=== PATIENT | female | born 1935 | race Caucasian/White ===

== ENCOUNTER → 2020-12-29 | Outpatient (CLI) | payer MEDICARE, BC ==
[~2020-12-29] MED LIST: ALPRAZOLAM0.5 MG PO; AMITIZA 24 MCG24 MCG PO; ASPIR 8181 MG PO; ASPIRIN81 MG PO; AUGMENTIN 500-1 EACH PO; B-122500 MCG PO; BENICAR20 MG PO; CARDURA 2MG TAB2 MG PO; CATAPRES0.1 MG PO; COLACE 100MG C100 MG PO; COZAAR100 MG PO; DILTIAZEM HCL90 MG PO; EFFIENT5 MG PO; ELIQUIS5 MG PO; FLAGYL500 MG PO; GLUCOPHAGE 500500 MG PO; IMDUR ER TAB 6060 MG PO; ISOSORBIDE MONO30 MG PO; K-DUR TAB 10 M10 MEQ PO; LACTULOSE20 GM/30 M PO; LIPITOR TAB 2020 MG PO; LIPITOR20 MG PO; LOSARTAN-HCTZ1 EAC1 PO; MEGACE TAB 40 M40 MG PO; METOPROLOL TART25 MG PO; NORCO 5-325 TA1 EACH PO; NORVASC 5 MG TAB5 MG PO; PROTONIX40 MG PO; REMERON15 MG PO; ROCEPHIN 1 GM AD1 GM IV; TOPROL XL25 MG PO; TYLENOL 325MG325 MG PO; VITAMIN B12-FO1 EACH PO
== END ==
LOC: US 10:42
DX: E04.1 Nontoxic single thyroid nodule (principal); E04.2 Nontoxic multinodular goiter
CPT/HCPCS: 76536

== ENCOUNTER 2022-04-11 08:40 | Emergency (ER) | payer MEDICARE, BC ==
[2022-04-11 09:47] LABS: HEMOGLOBIN 14.6 gm/dl (12.3-15.3); RED BLOOD COUNT 4.64 M/UL (4.00-5.10); WHITE BLOOD COUNT 10.1 K/UL (4.5-11.0)
[2022-04-11 10:23] LABS: BUN/CREATININE RATIO 16 (0-10)
[2022-04-11] MEDS ORDERED: MECLIZINE HCL25 MG PO (13:04)
[2022-04-11] MEDS ORDERED: ONDANSETRON ODT4 MG SL (13:04)
[2022-04-11] MEDS ORDERED: CEFUROXIME500 MG PO (13:04)
== END 2022-04-11 10:37 | disposition home or self-care (01) ==
LOC: ER1 08:40
PROVIDERS: Physician Assistant
DX: R42 Dizziness and giddiness (principal); R53.1 Weakness; N39.0 Urinary tract infection, site not specified; I48.20 Chronic atrial fibrillation, unspecified; Z20.822 Contact with and (suspected) exposure to COVID-19; R29.810 Facial weakness; E11.9 Type 2 diabetes mellitus without complications; I25.10 Atherosclerotic heart disease of native coronary artery without angina pectoris; E78.5 Hyperlipidemia, unspecified; I10 Essential (primary) hypertension; Z85.828 Personal history of other malignant neoplasm of skin; Z95.1 Presence of aortocoronary bypass graft; Z95.5 Presence of coronary angioplasty implant and graft; Z90.49 Acquired absence of other specified parts of digestive tract; Z90.710 Acquired absence of both cervix and uterus; Z79.01 Long term (current) use of anticoagulants
CPT/HCPCS: 70450; 71045; 80053; 81001; 82550; 82553; 84484; 85025; 87077; 87086; 87186; 93005; 96374; 99284; J2405; U0002